=== PATIENT | female | born 1950 | race Caucasian/White ===

== ENCOUNTER → 2016-09-15 | Outpatient (CLI) | payer OTHER ==
[~2016-09-15] MED LIST: ALBU1AER9 INH; CITA20TA4 PO; CMD75 PO; HYOS0.1271 PO; OXYC-57 PO
--- NOTE | 2016-09-15 14:35 | DIAGNOSTIC IMAGING REPORT ---
CHEST 2 VIEWS ROUTINE CLINICAL HISTORY: Shortness of breath. COMPARISON STUDY: Chest radiograph January 17, [address] January 17, 2014. FINDINGS: Lung volumes are normal. Lungs are clear. There is no pneumothorax or pleural effusion. Moderate cardiomegaly is unchanged. There is no evidence of pulmonary edema. IMPRESSION: 1. No acute findings. 2. Stable moderate cardiomegaly. Electronically signed by: Yefri Padilla M.D. 09/15/2016 2:34 PM Dictated Date/Time: 09/15/2016 2:33 PM
== END | disposition home or self-care (01) ==
LOC: C.RAD1850 14:01
PROVIDERS: ATTEND Internal Medicine Pulmonary Disease
DX: R06.02 Shortness of breath (principal); I51.7 Cardiomegaly

== ENCOUNTER → 2016-09-30 | Outpatient (CLI) | payer OTHER ==
[~2016-09-30] MED LIST changes: +PERFLUTREN LIPID MICROSPHERE (DEFINITY) IV ONE
--- NOTE | 2016-09-30 16:11 | EXERCISE STRESS ECHO ---
*NOTICE TO RECEIVING CONSTITUTION PARTY AGENCY This information is strictly Confidential and protected under [place] law. [place] law prohibits you from making any further disclosure of this information unless further disclosure is expressly permitted by the written consent of the person to whom it pertains or is authorized by law. A general authorization for the release of medical or other information is not sufficient for this purpose. Hospital accepts no responsibility if the information is made available to any other person, INCLUDING THE PATIENT. Interpretation Summary * Name: ELIDIA PRIETO Study Date: 09/30/2016 11:49 AM BP: 129/70 mmHg * Patient Location: [facility] HR: 93 * : 1950 (M/d/yyyy) Gender: Female Height: 62 in * Age: 66 yrs Ethnicity: [place] Weight: 207 lb * Ordering Physician: Sandra Jones * Referring Physician: Sandra Jones PA-C * Performed By: Alan Calderon RCS * * Reason For Study: SOB, Family Hx of Heart Dz * BSA: 1.9 m2 * -- Conclusions -- * Stress Echo: * 1. No definite ischemic changes on stress echo imaging at 85% MPHR. * 2. Negative exercise ECG for ischemia at 85% MPHR. * 3. No chest pain. * 4. Dyspnea reported. * 5. Appropriate blood pressure response to exercise. * 6. Technically difficult study with some enhancement with IV Definity. * 7. Poor exercise tolerance. * Echo: * 1. Normal left ventricular size with low-normal systolic function. Estimated EF 50-55%. Wall motion analysis is affected by image quality. Possible hypokinesis of septal base. No significant left ventricular hypertrophy. Type 1 diastolic dysfunction. * 2. No significant valvular abnormalities visualized. * 3. Technically difficult study, enhanced somewhat with IV Definity. Procedure Details * ECHOEX, CPT #[id number] * ECHO COLOR FLOW, CPT #[id number] * ECHO DOPPLER, CPT #[id number] * A contrast injection of Definity was performed to improve assessment of LV function. * Contrast was injected into an intravenous site in the left arm. * One vial of Definity ultrasound contrast was diluted in normal saline to a total volume of 10 ml. A total of '4' ml of solution was administered during imaging. * Lot # [id number] of Definity utilized for procedure. * Expiration date 1DEC. * The attending nurse who injected the contrast agent was Bunny Gerardo RN. Left Ventricle * Normal left ventricular size with low-normal systolic function. Estimated EF 50-55%. Wall motion analysis is affected by image quality. Possible hypokinesis of septal base. No significant left ventricular hypertrophy. Type 1 diastolic dysfunction. * The left ventricular ejection fraction increases normally with stress. The left ventricular end-systolic cavity size reduces post-stress (normal response). The left ventricular wall motion with stress is normal. * There appears to be appropriate augmentation of all visualized wall segments. Right Ventricle * The right ventricle is not well visualized. * The right ventricle is grossly normal size. * The right ventricular systolic function is normal as assessed by tricuspid annular plane systolic excursion (TAPSE) (normal >1.5 cm). * The right ventricular systolic function is normal. Atria * The left atrial size is normal. * Right atrial size is normal. Mitral Valve * The mitral valve is grossly normal. * There is no mitral valve stenosis. * There is trace mitral regurgitation. Tricuspid Valve * The tricuspid valve is not well visualized. * There is no tricuspid stenosis. * Significant tricuspid regurgitation is absent. Aortic Valve * The aortic valve is normal in structure and function. * The aortic valve is trileaflet. * No hemodynamically significant valvular aortic stenosis. * There is no significant aortic regurgitation. Pulmonic Valve * The pulmonary valve is inadequately visualized, but the Doppler data is adequate for interpretation. * Mild pulmonic valvular regurgitation. Great Vessels * Borderline aortic root dilatation. * Ascending aorta of normal dimension Pericardium * There is no pericardial effusion. Stress Parameters * NSR at [address] abnormality in II, III, aVF. * Slow upsloping ST depression (progression of baseline abnormalities). * No arrhythmia were noted with stress. * The stress portion of this study was personally supervised by the undersigned interpreting physician. * Rest heart rate was '93' BPM. * Rest blood pressure was '129/70' * Maximum heart rate achieved was 133 bpm. * Maximum heart rate was 85 % of maximum age-predicted heart rate. * Maximum blood pressure was '153/66' * Total exercise time was '4:16' * Maximum exercise MET level achieved was '6.1' METS * Maximum treadmill speed was '2.5' miles per hour. * Maximum treadmill elevation was '12'% grade. * Exercise was terminated due to 'fatigue after achieving target heart rate' * Normal blood pressure response to exercise. Left Ventricular Diastolic Function * Grade I diastolic dysfunction, (abnormal relaxation pattern). MMode 2D Measurements and Calculations IVSd 1.0 cm IVSs 1.3 cm LVIDd 4.6 cm LVIDs 3.4 cm LVPWd 1.0 cm LVPWs 1.4 cm IVS/LVPW 0.99 FS 27.7 % EDV(Teich) 99.3 ml ESV(Teich) 45.9 ml EF(Teich) 53.8 % EDV(cubed) 99.8 ml ESV(cubed) 37.7 ml EF(cubed) 62.2 % % IVS thick 25.5 % % LVPW thick 35.1 % LV mass(C)d 166.2 grams LV mass(C)dI 85.7 grams/m\S\2 LV mass(C)s 150.9 grams LV mass(C)sI 77.8 grams/m\S\2 SV(Teich) 53.4 ml SI(Teich) 27.5 ml/m\S\2 SV(cubed) 62.1 ml SI(cubed) 32.0 ml/m\S\2 Ao root diam 4.0 cm Ao root area 12.8 cm\S\2 ACS 2.2 cm LA dimension 3.5 cm asc Aorta Diam 3.3 cm LA/Ao 0.86 LVLd ap2 8.1 cm LVLs ap2 6.7 cm Doppler Measurements and Calculations MV E max mercedes 56.2 cm/sec MV A max mercedes 59.0 cm/sec MV E/A 0.95 MV P1/2t max mercedes 53.7 cm/sec MV P1/2t 64.7 msec MVA(P1/2t) 3.4 cm\S\2 MV dec slope 243.2 cm/sec\S\2 MV dec time 0.24 sec Ao V2 max 72.2 cm/sec Ao max PG 2.1 mmHg Ao max PG (full) 0.90 mmHg LV V1 max PG 1.2 mmHg LV V1 max 54.5 cm/sec PA V2 max 76.2 cm/sec PA max PG 2.3 mmHg PI max mercedes 173.3 cm/sec PI max PG 12.0 mmHg PI dec slope 157.2 cm/sec\S\2 PI P1/2t 322.7 msec
== END | disposition home or self-care (01) ==
LOC: C.CPL 11:23
PROVIDERS: ATTEND Internal Medicine Pulmonary Disease
DX: J45.909 Unspecified asthma, uncomplicated (principal); R06.02 Shortness of breath

== ENCOUNTER → 2017-05-10 | Outpatient (CLI) | payer OTHER ==
[~2017-05-10] MED LIST changes: -PERFLUTREN LIPID MICROSPHERE (DEFINITY) IV ONE
--- NOTE | 2017-05-10 16:11 | MAMMOGRAPHY REPORT ---
BILATERAL DIGITAL SCREENING MAMMOGRAM WITH CAD: 05/10/2017 CLINICAL HISTORY: Routine screening. Patient has no complaints. TECHNIQUE: Current study was also evaluated with a Computer Aided Detection (CAD) system. Bilateral CC and MLO views were obtained. COMPARISON: Comparison is made to exams dated: 05/03/2016 mammogram, 04/20/2015 mammogram, 03/06/2014 ma mmogram, 02/20/2013 mammogram, 02/08/2012 mammogram, and 01/11/2011 mammogram - [facility] ter. BREAST COMPOSITION: There are scattered areas of fibroglandular density in both breasts. FINDINGS: No suspicious masses, calcifications, or areas of architectural distortion are noted in ei ther breast. There has been no significant interval change compared to prior exams. Scattered bilater al benign-appearing calcifications are not significantly changed. IMPRESSION: ACR BI-RADS CATEGORY 2: BENIGN There is no mammographic evidence of malignancy. A 1 year screening mammogram is recommended. The pa tient will receive written notification of the results. Approximately 10% of breast cancers are not detected with mammography. A negative mammographic report should not delay biopsy if a clinically suggestive mass is present. Mery Birmingham M.D. ah/:05/10/2017 13:45:25 Installer Soft Top: Teena MEDELR, M, [facility] letter sent: Normal 1/2 BI-RADS Code: ACR BI-RADS Category 2: Benign
== END | disposition home or self-care (01) ==
LOC: C.MAMM 12:33
PROVIDERS: ATTEND Family Medicine
DX: Z12.31 Encounter for screening mammogram for malignant neoplasm of breast (principal)

== ENCOUNTER → 2018-02-23 | Outpatient (CLI) | payer OTHER ==
[~2018-02-23] MED LIST changes: -ALBU1AER9 INH; +BUPRTAB51 PO; -CITA20TA4 PO; -CMD75 PO; +CYAN100048 PO; +DIAZ2TAB PO; +FOLI1TAB8 PO; -HYOS0.1271 PO; +MECL1TAB42 PO; +MULT-1018 PO; -OXYC-57 PO; +RXC5 PO; +SPIR50TA2 PO; +WARF5TAB7 PO; +WARF7.5T4 PO
[2018-02-23 11:53] LABS: INR 2.6 (0.9-1.1)
--- NOTE | 2018-02-28 11:53 | CODING QUERY NO DIAGNOSIS ---
Valid Physician Order Needed A valid physician order must be submitted in order to properly bill for the service(s) provided, including date of service(s), valid diagnosis, and physician signature. If these tests are done on a recurring basis the original physician order must be submitted in order to code and bill for the service(s) provided. Please fax us the original, signed physician order so that we may expedite billing to [phone] DOS 02/23/18 * PROTHROMBIN TIME Thank you Bj [facility] Information Management
== END | disposition home or self-care (01) ==
LOC: C.LABSPEC 11:18
PROVIDERS: ATTEND Family Medicine
DX: Z01.89 Encounter for other specified special examinations (principal)

== ENCOUNTER 2019-07-15 14:44 | Observation (INO) ==
[2019-07-15] MEDS ORDERED: SODIUM CHLORIDE 0.9% 1000ML 1,000 ML IV ONE ×2 (15:04→17:49)
[2019-07-15 15:36] LABS: Basophils # (auto) 0.02 K/uL (0-0.2); Basophils % (auto) 0.3 %; Eosinophils # (auto) 0.11 K/uL (0-0.5); Eosinophils % (auto) 1.9 %; Hematocrit (blood only) 42.2 % (37-47); Hemoglobin 14.3 g/dL (12.0-16.0); Lymphocytes # (auto) 1.71 K/uL (1.2-3.4); Lymphocytes % (auto) 29.3 %; Mean Corpuscular Hemoglobin 32.5 pg (25-34); Mean Corpuscular Hgb Conc 33.9 g/dL (32-36); Mean Corpuscular Volume 95.9 fL (80-100); Mean Platelet Volume 11.9 fL (7.4-10.4); Monocytes # (auto) 0.31 K/uL (0.11-0.59); Monocytes % (auto) 5.3 %; Neutrophils # (auto) 3.69 K/uL (1.4-6.5); Neutrophils % (auto) 63.2 %; Platelet Count 244 K/uL (130-400); RDW Coefficient of Variation 13.7 % (11.5-14.5); RDW Standard Deviation 48.2 fL (36.4-46.3); White Blood Count 5.84 K/uL (4.8-10.8)
[2019-07-15 15:42] LABS: Prothrombin Time 28.7 Seconds (9.0-12.0)
[2019-07-15 15:57] LABS: Alanine Aminotransferase 21 U/L (12-78); Albumin Level 4.3 gm/dl (3.4-5.0); Aspartate Aminotransferase 23 U/L (15-37); BUN Creatinine Ratio 11.3 (10-20); Blood Urea Nitrogen 10 mg/dl (7-18); Calcium 9.6 mg/dl (8.5-10.1); Carbon Dioxide 23 mmol/L (21-32); Chloride 105 mmol/L (98-107); Est GFR (African American) 76.2; Est GFR (Non-African American) 65.7; Glucose 150 mg/dl (70-99); Lipase 123 U/L (73-393); Magnesium 1.9 mg/dl (1.8-2.4); Potassium 3.1 mmol/L (3.5-5.1); Sodium 139 mmol/L (136-145)
--- NOTE | 2019-07-15 16:02 | XRay Report ---
XR chest 1V portable HISTORY: 68 years-old Female Chest Pain acute atypical chest pain COMPARISON: Chest radiograph 07/02/2018 TECHNIQUE: Portable AP view of the chest FINDINGS: Cardiac silhouette is enlarged, unchanged. No pneumothorax, pleural effusion, focal airspace consolid ation or overt pulmonary edema. Degenerative changes of the shoulders and spine. IMPRESSION: Cardiomegaly without acute process. The above report was generated using voice recognition software. It may contain grammatical, syntax o r spelling errors. Electronically signed by: Manish Gonzalez M.D. 07/15/2019 4:00 PM
[2019-07-15 16:08] LABS: Albumin Globulin Ratio 1.1 (0.9-2); Alkaline Phosphatase 85 U/L (45-117); Bilirubin,Total 0.4 mg/dl (0.2-1); Phosphorus 2.3 mg/dl (2.5-4.9); Total Protein 8.3 gm/dl (6.4-8.2); Troponin I < 0.015 ng/ml (0-0.045)
[2019-07-15] MEDS ORDERED: POTASSIUM CHLORIDE / WTR 10 MEQ/100 ML PLCT IV STA (16:48)
[2019-07-15] MEDS ORDERED: POTASSIUM CHLORIDE 20 MEQ TABCR PO STA (17:00)
[2019-07-15] MEDS ORDERED: MAGNESIUM SULFATE / D5W 1 GM/100 ML BAG IV ONE (17:00)
[2019-07-15 18:30] LABS: Appearance Urine Clear (Clear); Bacteria Urine Automated Negative (Negative); Bilirubin Urine Negative (Negative); Blood Urine Negative (Negative); Color Urine Yellow; Epithelial Cell Urine Auto 20-30 /lpf (0-5); Glucose Urine UA Negative (Negative); Ketones Urine Negative (Negative); Leukocyte Esterase Urine Trace (Negative); Nitrite Urine Negative (Negative); Protein Urine Negative (Negative); RBC Urine Automated 0-4 /hpf (0-4); Specific Gravity Urine 1.012 (1.000-1.030); Urobilinogen Urine Negative (Negative)
[2019-07-15] MEDS ORDERED: MECLIZINE HCL 25 MG TAB PO PRN (20:27)
--- NOTE | 2019-07-15 21:12 | History & Physical Report ---
Date of Service July 15, 2019 Assessment & Plan (1) Palpitations: Likely underlying paroxysmal tachyarrhythmia --Patient reports intermittent episodes of palpitations associated with dizziness, syncope, heart rate 200s per pulse oximetry at home Resolves spontaneously after 5 to 10 minutes -- Admit to telemetry -- Echocardiogram ordered -- Replete and monitor potassium Continue IV fluids --Customs Consultant consulted Hypokalemia --Patient with IV and p.o. potassium,monitor levels Hypophosphatemia --Replaced with phosphorus History of pulmonary embolism, 2018 History of MTHFR mutation --Chronic Coumadin, INR 3.0 Continue Coumadin History of rectal cancer, status post colectomy --No GI issues, continue outpatient follow-up History of depression --Stable, on bupropion, hold for now in light of possible tachyarrhythmia DVT prophylaxis On Coumadin INR 3.0 Disposition Lives at home Anticipate discharge to home medically stable Follow-up with primary care physician Plan of care discussed with patient in detail and at length She is agreeable, and understanding with the plan of care History of Present Illness 68-year-old female with history of PE, MTHFR mutation, on chronic Coumadin, History of of rectal cancer, status post partial colectomy, other problems noted below presenting with intermittent palpitations and elevated heart rate since last week. Patient reports that since last week she has been having intermittent episodes of palpitations associated with lightheadedness and sensation of feeling that she is going to pass out. During these episodes patient patient would check her pulse rate with a pulse oximeter at home, reveals heart rate in the 200s. Episodes would occur about 1-2 times a day, lasts for about 5 to 10 minutes, and would spontaneously resolve with rest. This afternoon while eating at a restaurant, the patient had recurrence of the palpitations. Family brought the patient to the ER for evaluation. Upon admission, patient's heart rate was noted to be in the 200s, but quickly improved in the 120s, sinus rhythm. There is no EKG or monitoring tech strips while the heart rate was in the 200s. Patient was given IV NSS, potassium, magnesium. Heart rate further improved in the 80s. On exam patient was seen sitting up in bed, comfortable, not in distress. At that time heart rate was also in the 80s, sinus rhythm. She denies having active shortness of breath, chest pain, palpitations, dizziness, nausea. No other symptoms Primary Care Provider: Elmo Hays MD Allergies Allergy/AdvReac Type Severity Reaction Status Date / Time nickel Allergy Intermediate RASH/ITCHIN Verified 06/05/19 11:07 G Cephalosporins Allergy Mild rash Verified 06/05/19 11:07 triamterene Allergy Unknown tachycardia Verified 06/05/19 11:07 Home Medications Home Medications Medication Instructions Recorded Confirmed Type bupropion HCl 300 mg PO QAM 06/09/18 07/15/19 History cyanocobalamin (vitamin B-12) 1,000 mcg PO QAM 06/09/18 07/15/19 History diazepam 2 mg PO QID PRN 06/09/18 07/15/19 History folic acid 1 mg PO QAM 06/09/18 07/15/19 History meclizine 25 mg PO TID PRN 06/09/18 07/15/19 History spironolactone 50 mg PO QAM 06/09/18 07/15/19 History warfarin 5 mg PO QPM 06/09/18 07/15/19 History PNV cmb#95-ferrous fumarate-FA 1 tab PO QPM 04/12/19 07/15/19 History [] albuterol sulfate 2 puff INHALATION QID PRN 04/12/19 07/15/19 History Past Med/Surg History Medical History Acute blood loss anemia HX of after gallbladder surgery 2017 Acute pulmonary embolism HX 2014 & 2013 -DX'D WITH MTHFR then started on warfarin Anxiety Cancer COLON Depression History of MTHFR mutation Obesity On anticoagulant therapy WARFARIN DAILY Vertigo Surgical History H/O ileostomy AND REVERSED History of anesthesia reaction SLOW TO WAKE UP WITH GB SURG 06/2018 [facility] History of bowel resection History of cholecystectomy 06/2018 [facility]-2 BLOOD TRANSFUSIONS History of colonoscopy History of esophagogastroduodenoscopy (EGD) History of right cataract extraction History of tonsillectomy History of total knee replacement RIGHT TKA= 02/09/18= SAB X 1 ATTEMPT + PNB AT [facility] Nausea and vomiting after administration of anesthetic agent + VERITIGO (EXACERBATED)/DIZZINESS S/P COLON RESECTION S/P IVC filter PLACED 06/2018 AND WAS REMOVED 09/2018 S/P STANISLAW-BSO Family History Mother Cardiomyopathy Father No pertinent family history Grandmother , age 62 Aneurysm Brother Brain tumor Aunt Family history of diabetes mellitus Aunt Family history of diabetes mellitus Aunt Family history of diabetes mellitus Uncle Family history of diabetes mellitus Uncle Family history of diabetes mellitus Social History Preferred Language: Swedish Communication Ability: Effective Visual Impairment: No Limitations Integration Developer Required: No Beliefs That Will Affect Care: None Current Living Situation: Alone Feels Safe at Home: Yes Smoking Status: Never smoker Second Hand Exposure: No ; Hx Alcohol Use: No Hx Substance Use: No Review of Systems Review of Systems: All systems reviewed & are unremarkable except as noted in HPI & below Physical Exam Physical Exam: General- oriented x 3, not in distress, speaks in sentences with no effort or accessory muscle use Head- atraumatic Eyes- PERRL, EOMI, anicteric ENT- oropharynx clear Neck- supple, no JVD, no adenopathy, no thyromegaly; carotids +2/2, no bruits appreciated Lungs- clear to auscultation bilaterally, no rales/wheezes Heart- normal rate, regular rhythm; no murmur, no gallop, no rub appreciated Abdomen- normal bowel sounds, nondistended, soft, nontender, no masses or hepatosplenomegaly Extremities- no pretibial edema, no calf tenderness; peripheral pulses intact Neuro- alert, oriented x 3; CN 2-12 grossly intact; motor 5/5 bilaterally;sensation 100% on all extremities; no other gross focal neurologic deficits Skin- warm & dry Results & Data Vital Signs (Past 12 Hours) Vital Signs Pulse Pulse Resp BP BP Pulse Ox 07/15/19 19:58 78 21 122/83 99 07/15/19 19:30 78 21 122/83 99 07/15/19 19:00 82 20 140/74 96 07/15/19 18:30 83 14 140/88 97 07/15/19 18:00 87 17 142/82 H 97 07/15/19 17:31 98 H 22 133/89 97 07/15/19 17:00 112 H 19 113/81 96 07/15/19 16:30 84 19 142/96 H 98 07/15/19 16:00 87 18 123/85 96 07/15/19 15:30 94 H 31 H 152/94 H 98 07/15/19 15:24 96 07/15/19 15:15 122 H 26 H 144/71 H 98 07/15/19 15:06 116 H 20 144/71 H 97 07/15/19 15:00 120 H 26 H 98 07/15/19 14:56 202 H 20 145/98 H 98 Laboratory Results Laboratory Results - last 24 hr 07/15/19 07/15/19 07/15/19 15:16 15:16 15:16 WBC 5.84 RBC 4.40 Hgb 14.3 Hct 42.2 MCV 95.9 MCH 32.5 MCHC 33.9 RDW Std Deviation 48.2 H RDW Coeff of Yaz 13.7 Plt Count 244 MPV 11.9 H Immature Gran % (Auto) 0.0 Neut % (Auto) 63.2 Lymph % (Auto) 29.3 Davidson % (Auto) 5.3 Eos % (Auto) 1.9 Baso % (Auto) 0.3 Immature Gran # (Auto) 0.00 Neut # (Auto) 3.69 Lymph # (Auto) 1.71 Davidson # (Auto) 0.31 Eos # (Auto) 0.11 Baso # (Auto) 0.02 PT 28.7 H INR 3.0 H Sodium 139 Potassium 3.1 L Chloride 105 Carbon Dioxide 23 Anion Gap 11.0 BUN 10 Creatinine 0.91 Est Cr Clr Drug Dosing Not Reportable Est GFR ( Amer) 76.2 Est GFR (Non-Af Amer) 65.7 BUN/Creatinine Ratio 11.3 Glucose 150 H Calcium 9.6 Phosphorus 2.3 L Magnesium 1.9 Total Bilirubin 0.4 AST 23 ALT 21 Alkaline Phosphatase 85 Troponin I < 0.015 Total Protein 8.3 H Albumin 4.3 Globulin 4.0 Albumin/Globulin Ratio 1.1 Lipase 123 TSH 1.890 Urine Color Urine Appearance Urine pH Ur Specific Elmo Urine Protein Urine Glucose (UA) Urine Ketones Urine Blood Urine Nitrite Urine Bilirubin Urine Urobilinogen Ur Leukocyte Esterase Urine WBC (Auto) Urine RBC (Auto) U Hyaline Cast (Auto) U Epithel Cells (Auto) Urine Bacteria (Auto) 07/15/19 18:00 WBC RBC Hgb Hct MCV MCH MCHC RDW Std Deviation RDW Coeff of Yaz Plt Count MPV Immature Gran % (Auto) Neut % (Auto) Lymph % (Auto) Davidson % (Auto) Eos % (Auto) Baso % (Auto) Immature Gran # (Auto) Neut # (Auto) Lymph # (Auto) Davidson # (Auto) Eos # (Auto) Baso # (Auto) PT INR Sodium Potassium Chloride Carbon Dioxide Anion Gap BUN Creatinine Est Cr Clr Drug Dosing Est GFR ( Amer) Est GFR (Non-Af Amer) BUN/Creatinine Ratio Glucose Calcium Phosphorus Magnesium Total Bilirubin AST ALT Alkaline Phosphatase Troponin I Total Protein Albumin Globulin Albumin/Globulin Ratio Lipase TSH Urine Color Yellow Urine Appearance Clear Urine pH 6.0 Ur Specific Elmo 1.012 Urine Protein Negative Urine Glucose (UA) Negative Urine Ketones Negative Urine Blood Negative Urine Nitrite Negative Urine Bilirubin Negative Urine Urobilinogen Negative Ur Leukocyte Esterase Trace H Urine WBC (Auto) 1-5 Urine RBC (Auto) 0-4 U Hyaline Cast (Auto) 1-5 U Epithel Cells (Auto) 20-30 H Urine Bacteria (Auto) Negative Code Status & VTE Plan Code Status FULL CODE PER PATIENT VTE Prophylaxis Plan VTE Prophylaxis will be ordered: Yes
[2019-07-15] MEDS: NSS + 20MEQ KCL 20 MEQ/1,000 ML BAG IV SCH (21:21)
[2019-07-15] MEDS: POT PHOSPHATE MONOBASIC W/ SOD TAB PO SCH (21:21)
--- NOTE | 2019-07-16 02:01 | Emergency Department Note ---
Entered by Ariela Pineda acting as a scribe for History of Present Illness General Chief complaint: Cardiac Assessment Stated complaint: HEART RATE KEEPS RISING, LIGHT HEADED Time Seen by Provider: 07/15/19 15:03 History of Present Illness Onset (ago): week(s) 1 Location: chest Pain Consistency: + intermittent Quality: + other (pressure) Associated symptoms: + denies other symptoms (congestion), + diaphoresis and + other (palpitations, tachycardia, hot, flushed, lightheaded); no cough and no fever/chills The patient is a 68 year old female who presents to the Emergency Room with complaints of intermittent chest pain starting a week ago. The patient states that intermittently for the past week she has been having these intermittent episodes of chest pressure with the feeling of her heart beating really hard. She reports that over the last few days, the episodes have been getting closer and closer together. She states that with each episode she checks her heart rate and it has been around 218. She reports that the other night she had an episode that lasted for an hour and it slowly came down to 182. She notes that the entire time she was hot, flushed, and diaphoretic. The patient states that today she had an episode while she was with her kids. She reports that she started to feel like she was going to pass out she was so lightheaded. She states that they made her come here. The patient notes that she only drinks Pepsi and is on Coumadin. The patient denies a cardiac history, fever, chills, cough, and congestion. Home Medications Home Medications Medication Instructions Recorded Confirmed Type bupropion HCl 300 mg PO QAM 06/09/18 07/15/19 History cyanocobalamin (vitamin B-12) 1,000 mcg PO QAM 06/09/18 07/15/19 History diazepam 2 mg PO QID PRN 06/09/18 07/15/19 History folic acid 1 mg PO QAM 06/09/18 07/15/19 History meclizine 25 mg PO TID PRN 06/09/18 07/15/19 History spironolactone 50 mg PO QAM 06/09/18 07/15/19 History warfarin 5 mg PO QPM 06/09/18 07/15/19 History PNV cmb#95-ferrous fumarate-FA 1 tab PO QPM 04/12/19 07/15/19 History [] albuterol sulfate 2 puff INHALATION QID PRN 04/12/19 07/15/19 History metoprolol tartrate 25 mg PO BID 30 Days #60 tab 07/17/19 Rx sod phos di, mono-K phos mono 1 tab PO QID 10 Days #40 tab 07/17/19 Rx [Phospha 250 Neutral] Allergies Allergy/AdvReac Type Severity Reaction Status Date / Time nickel Allergy Intermediate RASH/ITCHIN Verified 06/05/19 11:07 G Cephalosporins Allergy Mild rash Verified 06/05/19 11:07 triamterene Allergy Unknown tachycardia Verified 06/05/19 11:07 Past Med/Surg History Medical History Acute blood loss anemia HX of after gallbladder surgery 2017 Acute pulmonary embolism HX 2014 & 2013 -DX'D WITH MTHFR then started on warfarin Anxiety Cancer COLON Depression History of MTHFR mutation Obesity On anticoagulant therapy WARFARIN DAILY Vertigo Surgical History H/O ileostomy AND REVERSED History of anesthesia reaction SLOW TO WAKE UP WITH GB SURG 06/2018 [facility] History of bowel resection History of cholecystectomy 06/2018 [facility]-2 BLOOD TRANSFUSIONS History of colonoscopy History of esophagogastroduodenoscopy (EGD) History of right cataract extraction History of tonsillectomy History of total knee replacement RIGHT TKA= 02/09/18= SAB X 1 ATTEMPT + PNB AT [facility] Nausea and vomiting after administration of anesthetic agent + VERITIGO (EXACERBATED)/DIZZINESS S/P COLON RESECTION S/P IVC filter PLACED 06/2018 AND WAS REMOVED 09/2018 S/P STANISLAW-BSO Family History Mother Cardiomyopathy Father No pertinent family history Grandmother , age 62 Aneurysm Brother Brain tumor Aunt Family history of diabetes mellitus Aunt Family history of diabetes mellitus Aunt Family history of diabetes mellitus Uncle Family history of diabetes mellitus Uncle Family history of diabetes mellitus Social History Preferred Language: Romanian Communication Ability: Effective Visual Impairment: No 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 and A total of 10 systems reviewed and were otherwise negative Physical Exam Vital Signs Vital Signs - 24 hr 07/15/19 14:56 07/15/19 15:00 07/15/19 15:06 Sepsis Recent Fever Within 48 Hours No Sepsis Action Taken by Nursing No Action Required Pulse Rate 202 H 120 H 116 H Pulse Rate [Right Finger] Pulse Rate from SpO2 Sensor 104 H Respiratory Rate 20 26 H 20 Respiratory Effort / Characteristics Non-Labored Respiratory Depth Normal Blood Pressure 145/98 H 144/71 H Blood Pressure [Right Arm] Blood Pressure Mean 113 95 Blood Pressure Mean [Right Arm] Pulse Oximetry 98 98 97 Oxygen Delivery Method Room Air Room Air 07/15/19 15:15 07/15/19 15:20 07/15/19 15:24 Sepsis Recent Fever Within 48 Hours Sepsis Action Taken by Nursing Pulse Rate Pulse Rate [Right Finger] 122 H Pulse Rate from SpO2 Sensor Respiratory Rate 26 H Respiratory Effort / Characteristics Non-Labored Non-Labored Respiratory Depth Normal Normal Blood Pressure Blood Pressure [Right Arm] 144/71 H Blood Pressure Mean Blood Pressure Mean [Right Arm] 95 Pulse Oximetry 98 96 Oxygen Delivery Method Room Air Room Air Room Air 07/15/19 15:30 07/15/19 16:00 07/15/19 16:30 Sepsis Recent Fever Within 48 Hours Sepsis Action Taken by Nursing Pulse Rate 94 H 87 84 Pulse Rate [Right Finger] Pulse Rate from SpO2 Sensor 94 H 78 85 Respiratory Rate 31 H 18 19 Respiratory Effort / Characteristics Respiratory Depth Blood Pressure 152/94 H 123/85 142/96 H Blood Pressure [Right Arm] Blood Pressure Mean 113 97 111 Blood Pressure Mean [Right Arm] Pulse Oximetry 98 96 98 Oxygen Delivery Method Room Air Room Air Room Air 07/15/19 17:00 07/15/19 17:31 07/15/19 18:00 Sepsis Recent Fever Within 48 Hours Sepsis Action Taken by Nursing Pulse Rate 112 H 98 H 87 Pulse Rate [Right Finger] Pulse Rate from SpO2 Sensor 96 H 95 H Respiratory Rate 19 22 17 Respiratory Effort / Characteristics Respiratory Depth Blood Pressure 113/81 133/89 142/82 H Blood Pressure [Right Arm] Blood Pressure Mean 91 103 102 Blood Pressure Mean [Right Arm] Pulse Oximetry 96 97 97 Oxygen Delivery Method Room Air Room Air Room Air 07/15/19 18:30 Sepsis Recent Fever Within 48 Hours Sepsis Action Taken by Nursing Pulse Rate 83 Pulse Rate [Right Finger] Pulse Rate from SpO2 Sensor 83 Respiratory Rate 14 Respiratory Effort / Characteristics Respiratory Depth Blood Pressure 140/88 Blood Pressure [Right Arm] Blood Pressure Mean 105 Blood Pressure Mean [Right Arm] Pulse Oximetry 97 Oxygen Delivery Method Room Air GENERAL: Awake, alert, fatigued-appearing, in no distress HENT: Normocephalic, atraumatic. Oropharynx with dry mucous membranes and otherwise unremarkable. . EYES: Normal conjunctiva. Sclera non-icteric. NECK: Supple. No nuchal rigidity. FROM. No JVD. RESPIRATORY: Clear to auscultation bilaterally. CARDIAC: Tachycardic rate, irregular rhythm. Extremities warm and well perfused. Pulses equal. ABDOMEN: Soft, non-distended. No tenderness to palpation. No rebound or guarding. No masses. RECTAL: Deferred. MUSCULOSKELETAL: Chest examination reveals no tenderness. The back is symmetrical on inspection without obvious abnormality. There is no CVA tenderness to palpation. No joint edema. LOWER EXTREMITIES: Calves are equal size bilaterally and non-tender. No edema. No discoloration. NEURO: Normal sensorium. No sensory or motor deficits noted. SKIN: No rash or jaundice noted. Course 1507: The patient was evaluated in room B8. A complete history and physical exam was performed. 1733: I reevaluated the patient and updated her on her test results thus far. 175: I discussed the patient's case with KIMO Delarosa [facility] Hospitalist. She will evaluate the patient for further management. 1805: I reevaluated the patient and updated her on her test results. I discussed the treatment plan with her. She verbally agrees and understands. Administered Medications Discontinued Medications Acetaminophen (Tylenol) 650 mg PO Q4H PRN PRN Reason: Pain or Fever Stop: 08/14/19 20:26 Last Admin: 07/16/19 17:02 Dose: 650 mg Documented by: [id number] Admin: 07/16/19 08:38 Dose: 650 mg Documented by: [id number] Bupropion HCl (Wellbutrin-Xl) 300 mg PO QAM VALENTÍN Stop: 08/16/19 08:59 Last Admin: 07/17/19 09:05 Dose: 300 mg Documented by: [id number] Folic Acid (Folvite) 1 mg PO QAM VALENTÍN Stop: 08/15/19 08:59 Last Admin: 07/17/19 08:44 Dose: 1 mg Documented by: [id number] Admin: 07/16/19 08:39 Dose: 1 mg Documented by: [id number] Sodium Chloride (Nss 1000ml) 1,000 mls @ 999 mls/hr IV .Q1H1M ONE Stop: 07/15/19 16:04 Last Infusion: 07/15/19 17:14 Dose: 0 mls/hr Documented by: [id number] Admin: 07/15/19 15:21 Dose: 999 mls/hr Documented by: [id number] Potassium Chloride (K Edgar / Wtr) 10 meq in 100 mls @ 100 mls/hr IV NOW STA Stop: 07/15/19 17:47 Last Infusion: 07/15/19 18:58 Dose: 0 mls/hr Documented by: [id number] Admin: 07/15/19 17:53 Dose: 100 mls/hr Documented by: [id number] Magnesium Sulfate/Dextrose (Magnesium Sulfate / D5w) 1 gm in 100 mls @ 100 mls/hr IV ONE ONE Stop: 07/15/19 17:59 Last Infusion: 07/15/19 18:58 Dose: 0 mls/hr Documented by: [id number] Admin: 07/15/19 17:52 Dose: 100 mls/hr Documented by: [id number] Sodium Chloride (Nss 1000ml) 1,000 mls @ 999 mls/hr IV .Q1H1M ONE Stop: 07/15/19 18:49 Last Infusion: 07/15/19 19:29 Dose: 0 mls/hr Documented by: [id number] Admin: 07/15/19 17:52 Dose: 999 mls/hr Documented by: [id number] Potassium Chloride/Sodium Chloride (Normal Saline W/20 Meq Kcl) 20 meq in 1,000 mls @ 100 mls/hr IV .Q10H VALENTÍN Stop: 08/14/19 20:59 Last Infusion: 07/17/19 08:42 Dose: 0 mls/hr Documented by: [id number] Admin: 07/17/19 02:45 Dose: 100 mls/hr Documented by: [id number] Infusion: 07/17/19 02:45 Dose: 100 mls/hr Documented by: [id number] Admin: 07/16/19 16:56 Dose: 100 mls/hr Documented by: [id number] Infusion: 07/16/19 16:56 Dose: 100 mls/hr Documented by: [id number] Admin: 07/16/19 08:39 Dose: 100 mls/hr Documented by: [id number] Infusion: 07/16/19 07:21 Dose: 100 mls/hr Documented by: [id number] Admin: 07/15/19 21:21 Dose: 100 mls/hr Documented by: [id number] Metoprolol Tartrate (Lopressor) Confirm Administered Dose 5 mg IV .STK-MED ONE Stop: 07/16/19 02:10 Last Increment: 07/16/19 05:03 Dose: 2.5 mg Documented by: [id number] Metoprolol Tartrate (Lopressor) 25 mg PO BID VALENTÍN Stop: 08/15/19 09:29 Last Admin: 07/17/19 08:44 Dose: 25 mg Documented by: [id number] Admin: 07/16/19 20:03 Dose: 25 mg Documented by: [id number] Admin: 07/16/19 09:46 Dose: 25 mg Documented by: [id number] Potassium Chloride (Klor-Con M20) 40 meq PO NOW STA Stop: 07/15/19 17:01 Last Admin: 07/15/19 17:53 Dose: 40 meq Documented by: [id number] Potassium Phosphate (Phospha 250 Neutral 155-852-130 Mg) 1 tab PO QID VALENTÍN Stop: 08/14/19 20:59 Last Admin: 07/17/19 08:44 Dose: 1 tab Documented by: [id number] Admin: 07/16/19 20:03 Dose: 1 tab Documented by: [id number] Admin: 07/16/19 16:56 Dose: 1 tab Documented by: [id number] Admin: 07/16/19 12:02 Dose: 1 tab Documented by: [id number] Admin: 07/16/19 08:39 Dose: 1 tab Documented by: [id number] Admin: 07/15/19 21:21 Dose: 1 tab Documented by: [id number] Warfarin Sodium (Coumadin) 5 mg PO DAILY@1600 VALENTÍN Stop: 08/15/19 15:59 Last Admin: 07/16/19 16:10 Dose: 5 mg Documented by: [id number] Impression & Plan Dehydration, Hypokalemia, Hypophosphatemia, Hypomagnesemia, Atrial tachycardia Discharge Plan Visit Data *Final* Discharge Date/Time: 07/15/19 19:58 Chief Complaint: Cardiac Assessment Stated Complaint: HEART RATE KEEPS RISING, LIGHT HEADED ED Provider: Faraz Cardenas Discharge Problem: Dehydration, Hypokalemia, Hypophosphatemia, Hypomagnesemia, Atrial tachycardia Patient Disposition: Admitted As Inpatient Discharge Instructions Interventions: ED Discharge Assessment Last Done: 07/15/19 19:58 Medical Decision Making Differential Diagnosis Differential diagnosis includes etiologies such as premature contractions, electrolyte abnormality, cardiac dysrhythmia, thyroid dysfunction, pulmonary embolism, infection, gastrointestinal, as well as others were entertained. Medical Records Attestation: I reviewed the patient's medical records. Home Medications Current Medication List: was personally reviewed by me Laboratory Data Attestation: I reviewed the patient's lab results. Result diagrams: 07/15/19 15:16 07/17/19 06:06 Lab Results 07/15/19 07/15/19 07/15/19 Range/Units 15:16 15:16 15:16 WBC 5.84 (4.8-10.8) K/uL RBC 4.40 (4.2-5.4) M/uL Hgb 14.3 (12.0-16.0) g/dL Hct 42.2 (37-47) % MCV 95.9 (80-100) fL MCH 32.5 (25-34) pg MCHC 33.9 (32-36) g/dL RDW Std Deviation 48.2 H (36.4-46.3) fL RDW Coeff of Yaz 13.7 (11.5-14.5) % Plt Count 244 (130-400) K/uL MPV 11.9 H (7.4-10.4) fL Immature Gran % (Auto) 0.0 % Neut % (Auto) 63.2 % Lymph % (Auto) 29.3 % [place] % (Auto) 5.3 % Eos % (Auto) 1.9 % Baso % (Auto) 0.3 % Immature Gran # (Auto) 0.00 (0.00-0.02) K/uL Neut # (Auto) 3.69 (1.4-6.5) K/uL Lymph # (Auto) 1.71 (1.2-3.4) K/uL [place] # (Auto) 0.31 (0.11-0.59) K/uL Eos # (Auto) 0.11 (0-0.5) K/uL Baso # (Auto) 0.02 (0-0.2) K/uL PT 28.7 H (9.0-12.0) Seconds INR 3.0 H (0.9-1.1) Sodium 139 (136-145) mmol/L Potassium 3.1 L (3.5-5.1) mmol/L Chloride 105 (98-107) mmol/L Carbon Dioxide 23 (21-32) mmol/L Anion Gap 11.0 (3-11) BUN 10 (7-18) mg/dl Creatinine 0.91 (0.6-1.2) mg/dl Est Cr Clr Drug Dosing Not Reportable Est GFR ( Amer) 76.2 Est GFR (Non-Af Amer) 65.7 BUN/Creatinine Ratio 11.3 (10-20) Glucose 150 H (70-99) mg/dl Calcium 9.6 (8.5-10.1) mg/dl Phosphorus 2.3 L (2.5-4.9) mg/dl Magnesium 1.9 (1.8-2.4) mg/dl Total Bilirubin 0.4 (0.2-1) mg/dl AST 23 (15-37) U/L ALT 21 (12-78) U/L Alkaline Phosphatase 85 (45-117) U/L Troponin I < 0.015 (0-0.045) ng/ml Total Protein 8.3 H (6.4-8.2) gm/dl Albumin 4.3 (3.4-5.0) gm/dl Globulin 4.0 (2.5-4.0) gm/dl Albumin/Globulin Ratio 1.1 (0.9-2) Lipase 123 (73-393) U/L TSH 1.890 (0.300-4.500) uIu/ml Urine Color Urine Appearance (Clear) Urine pH (4.5-7.5) Ur Specific [place] (1.000-1.030) Urine Protein (Negative) Urine Glucose (UA) (Negative) Urine Ketones (Negative) Urine Blood (Negative) Urine Nitrite (Negative) Urine Bilirubin (Negative) Urine Urobilinogen (Negative) Ur Leukocyte Esterase (Negative) Urine WBC (Auto) (0-5) /hpf Urine RBC (Auto) (0-4) /hpf U Hyaline Cast (Auto) (0-5) /lpf U Epithel Cells (Auto) (0-5) /lpf Urine Bacteria (Auto) (Negative) 07/15/19 Range/Units 18:00 WBC (4.8-10.8) K/uL RBC (4.2-5.4) M/uL Hgb (12.0-16.0) g/dL Hct (37-47) % MCV (80-100) fL MCH (25-34) pg MCHC (32-36) g/dL RDW Std Deviation (36.4-46.3) fL RDW Coeff of Yaz (11.5-14.5) % Plt Count (130-400) K/uL MPV (7.4-10.4) fL Immature Gran % (Auto) % Neut % (Auto) % Lymph % (Auto) % [place] % (Auto) % Eos % (Auto) % Baso % (Auto) % Immature Gran # (Auto) (0.00-0.02) K/uL Neut # (Auto) (1.4-6.5) K/uL Lymph # (Auto) (1.2-3.4) K/uL [place] # (Auto) (0.11-0.59) K/uL Eos # (Auto) (0-0.5) K/uL Baso # (Auto) (0-0.2) K/uL PT (9.0-12.0) Seconds INR (0.9-1.1) Sodium (136-145) mmol/L Potassium (3.5-5.1) mmol/L Chloride (98-107) mmol/L Carbon Dioxide (21-32) mmol/L Anion Gap (3-11) BUN (7-18) mg/dl Creatinine (0.6-1.2) mg/dl Est Cr Clr Drug Dosing Est GFR ( Amer) Est GFR (Non-Af Amer) BUN/Creatinine Ratio (10-20) Glucose (70-99) mg/dl Calcium (8.5-10.1) mg/dl Phosphorus (2.5-4.9) mg/dl Magnesium (1.8-2.4) mg/dl Total Bilirubin (0.2-1) mg/dl AST (15-37) U/L ALT (12-78) U/L Alkaline Phosphatase (45-117) U/L Troponin I (0-0.045) ng/ml Total Protein (6.4-8.2) gm/dl Albumin (3.4-5.0) gm/dl Globulin (2.5-4.0) gm/dl Albumin/Globulin Ratio (0.9-2) Lipase (73-393) U/L TSH (0.300-4.500) uIu/ml Urine Color Yellow Urine Appearance Clear (Clear) Urine pH 6.0 (4.5-7.5) Ur Specific [place] 1.012 (1.000-1.030) Urine Protein Negative (Negative) Urine Glucose (UA) Negative (Negative) Urine Ketones Negative (Negative) Urine Blood Negative (Negative) Urine Nitrite Negative (Negative) Urine Bilirubin Negative (Negative) Urine Urobilinogen Negative (Negative) Ur Leukocyte Esterase Trace H (Negative) Urine WBC (Auto) 1-5 (0-5) /hpf Urine RBC (Auto) 0-4 (0-4) /hpf U Hyaline Cast (Auto) 1-5 (0-5) /lpf U Epithel Cells (Auto) 20-30 H (0-5) /lpf Urine Bacteria (Auto) Negative (Negative) Imaging Data Radiologist's Impression: Radiology results as stated below per my review and the radiologist's interpretation: XR chest 1V portable HISTORY: 68 years-old Female Chest Pain acute atypical chest pain COMPARISON: Chest radiograph 07/02/2018 TECHNIQUE: Portable AP view of the chest FINDINGS: Cardiac silhouette is enlarged, unchanged. No pneumothorax, pleural effusion, focal airspace consolidation or overt pulmonary edema. Degenerative changes of the shoulders and spine. IMPRESSION: Cardiomegaly without acute process. The above report was generated using voice recognition software. It may contain grammatical, syntax or spelling errors. Electronically signed by: Manish Gonzalez M.D. 07/15/2019 4:00 PM ECG Data Attestation: I personally reviewed and interpreted this ECG as follows: Indication: + palpitations Rate (beats per minute): 101 Rhythm: + sinus tachycardia (vs atrialtopic rhythm) ECG ST segments: no ST depression and no ST elevation ECG Findings: + Other (nonspecific ST and T wave abnormalities, FL is 208, QT-c 482) Additional Comments: REPEAT EKG: Normal sinus rhythm vs atrial ectopic rhythm at a rate of 88. Normal axis. QT-c 488. Nonspecific T wave abnormality that is improved. No ST elevation. Blood Pressure Blood Pressure Findings: Elevated blood pressure Blood Pressure Disposition: further management by hospitalist [facility] Narrative The patient is a pleasant 68-year-old woman with pmhx of PE and MTHFR mutation on Coumadin who presents emergency department with intermittent episodes of palpitations where she reports her heart rate will go as high as the 200s per hpi. On arrival patient is in no acute distress, afebrile with heart rate labile from the 110s to the 150s 160s although initially with heart rate as high as 200s and vital signs otherwise stable. The patient denies any prior history of similar symptoms. She does admittedly drink caffeine regularly in the form of Pepsi, saying that "all she ever drinks is Pepsi. On exam the patient appears clinically dry. EKG demonstrates Sinus tachycardia vs atrial tachycardia given slight change in morphology of P waves. There is no overt acute ischemia however T wave abnormalities inferiorly. Chemistry without acidosis. Potassium 3.1, phosphorus 2.3 and magnesium 1.9 with repletion provided. Patient's heart rate did improve slowly downtrending to the 80s to 110s though still labile. Repeat EKG with improved rate though still with possible atrial ectopic rhythm. T wave abnormalities are improved. However while improved though does still feel palpitations and lightheadedness when her heart rate increases. Therefore reasonable to admit for further monitoring/management. Case was discussed with Ryann Barnett, [facility], who evaluate the patient for admission. The scribe's documentation has been prepared under my direction and personally reviewed by me in its entirety. I confirm that the note above accurately reflects all work, treatment, procedures, and medical decision making performed by me.
[2019-07-16] MEDS ORDERED: METOPROLOL TARTRATE 1 MG/ML VIAL IV ONE (02:09)
[2019-07-16 06:36] LABS: Calcium 8.3 mg/dl (8.5-10.1); Creatinine Clr Calc Pharmacy 88.2 ml/min; Est GFR (African American) 105.6; Est GFR (Non-African American) 91.2; Magnesium 2.2 mg/dl (1.8-2.4); Phosphorus 2.7 mg/dl (2.5-4.9); Potassium 4.4 mmol/L (3.5-5.1)
[2019-07-16] MEDS: ACETAMINOPHEN 325 MG TAB PO PRN ×2 (08:38→17:02)
[2019-07-16] MEDS: FOLIC ACID 1 MG TAB PO SCH (08:39)
[2019-07-16] MEDS: NSS + 20MEQ KCL 20 MEQ/1,000 ML BAG IV SCH ×2 (08:39→16:56)
[2019-07-16] MEDS: POT PHOSPHATE MONOBASIC W/ SOD TAB PO SCH ×4 (08:39→20:03)
[2019-07-16] MEDS ORDERED: SPIRONOLACTONE 25 MG TAB PO SCH (09:00)
--- NOTE | 2019-07-16 09:41 | Cardiology Consultation ---
Date of Consultation July 16, 2019 Assessment & Plan (1) Paroxysmal supraventricular tachycardia: Telemetry monitoring overnight did capture SVT in the 200 bpm range. At this point I am not quite sure the inciting factor other than her significant hypokalemia, which is a new finding for her. Especially since she is on Spironolactone. So this time I will check an echocardiogram to evaluate for structural abnormalities. The pathophysiology and treatment options for SVT were discussed with her great length today and she will be started on metoprolol 25 mg twice daily For hopeful successful suppression. I am highly suspicious that she is also suffering from sleep apnea and a nocturn al pulse ox will be obtained today as well. We will continue to monitor on telemetry overnight (2) Hypokalemia: Unclear etiology Currently being repleted Will need to be followed closely as an outpatient History of Present Illness Reason for Consultation: PSVT Attending Physician: Stacie Alcaraz MD History of Present Illness It was my pleasure to see Ms. Post in consultation today July 16, 2019. She is a very pleasant 68-year-old woman not previously seen by her cardiology practice who presented to [facility] on 07/15/2019 with complaints of palpitations. She states that approximately 1 week prior to presentation she started having episodes of feeling her heart racing. She states it could happen either at rest or with exertion. She states her heart would start racing and occasionally she get a little lightheaded with this. She states these episodes never lasted longer than a few minutes and then they quickly resolve on their own. She notes that the palpitations may have been worse when she was lying down but otherwise there is no aggravating or alleviating factors. The episode started becoming more frequent with more more lightheadedness until she was out to dinner on the and her family notes that she became very lightheaded and close to passing out. When she went to walk out of the restaurant she is having difficulty walking and her heart was racing at that time. Upon presentation emergency room her heart was found to be in the 200s and quickly broke to normal sinus rhythm with frequent supraventricular ectopy. On telemetry overnight patient was baseline sinus rhythm with frequent supraventricular ectopy with short runs of SVT in the 200s. She was also found to be hypokalemic on presentation that was repleted and she was given IV Lopressor appropriately overnight with resolution of the SVT. She denies any factors leading up to these events. Specifically denies any fevers, diarrhea change in diet or change in medications. Upon further questioning she does state that she snores at night and feels very tired during the day and requires frequent naps. She is never been screened for sleep apnea. Allergies Allergy/AdvReac Type Severity Reaction Status Date / Time nickel Allergy Intermediate RASH/ITCHIN Verified 06/05/19 11:07 G Cephalosporins Allergy Mild rash Verified 06/05/19 11:07 triamterene Allergy Unknown tachycardia Verified 06/05/19 11:07 Home Medications Home Medications Medication Instructions Recorded Confirmed Type bupropion HCl 300 mg PO QAM 06/09/18 07/15/19 History cyanocobalamin (vitamin B-12) 1,000 mcg PO QAM 06/09/18 07/15/19 History diazepam 2 mg PO QID PRN 06/09/18 07/15/19 History folic acid 1 mg PO QAM 06/09/18 07/15/19 History meclizine 25 mg PO TID PRN 06/09/18 07/15/19 History spironolactone 50 mg PO QAM 06/09/18 07/15/19 History warfarin 5 mg PO QPM 06/09/18 07/15/19 History PNV cmb#95-ferrous fumarate-FA 1 tab PO QPM 04/12/19 07/15/19 History [] albuterol sulfate 2 puff INHALATION QID PRN 04/12/19 07/15/19 History Patient History Medical History Acute blood loss anemia HX of after gallbladder surgery 2017 Acute pulmonary embolism HX 2014 & 2013 -DX'D WITH MTHFR then started on warfarin Anxiety Cancer COLON Depression History of MTHFR mutation Obesity On anticoagulant therapy WARFARIN DAILY Vertigo Surgical History H/O ileostomy AND REVERSED History of anesthesia reaction SLOW TO WAKE UP WITH GB SURG 06/2018 [facility] History of bowel resection History of cholecystectomy 06/2018 [facility]-2 BLOOD TRANSFUSIONS History of colonoscopy History of esophagogastroduodenoscopy (EGD) History of right cataract extraction History of tonsillectomy History of total knee replacement RIGHT TKA= 02/09/18= SAB X 1 ATTEMPT + PNB AT [facility] Nausea and vomiting after administration of anesthetic agent + VERITIGO (EXACERBATED)/DIZZINESS S/P COLON RESECTION S/P IVC filter PLACED 06/2018 AND WAS REMOVED 09/2018 S/P STANISLAW-BSO Family History Mother Cardiomyopathy Father No pertinent family history Grandmother , age 62 Aneurysm Brother Brain tumor Aunt Family history of diabetes mellitus Aunt Family history of diabetes mellitus Aunt Family history of diabetes mellitus Uncle Family history of diabetes mellitus Uncle Family history of diabetes mellitus Social History Preferred Language: Kiswahili Communication Ability: Effective Visual Impairment: No Limitations Acquisitions Analyst Required: No Beliefs That Will Affect Care: None Current Living Situation: Family Other Information That Helps Us Care for You: No Feels Safe at Home: Yes Safety Concerns: Feels Safe At This Time Smoking Status: Never smoker Second Hand Exposure: No ; Hx Alcohol Use: No Hx Substance Use: No Review of Systems Review of Systems: All systems reviewed & are unremarkable except as noted in HPI & below Physical Exam Physical Exam: General: Awake, alert and oriented x 3. No acute distress. HEENT: Normocephalic, atraumatic. Pupils equal, round and reactive to light and accommodation. Extraocular muscles are intact. Anicteric sclera. Moist mucous membranes. Neck: No JVD. No bruit. Cardiovascular: Regular. Positive S-4. Normal S-1 and S-2. No S-3. 3/6 holosystolic ejection murmur, left sternal border, mid-clavicular line with radiation to the axilla. No rubs. Pulmonary: Clear to auscultation bilaterally. No rales, rhonchi, or wheezing. Abdomen: Bowel sounds x 4, soft. No rebound, guarding or tenderness. No organomegaly. Extremities: No clubbing, cyanosis or edema. +2 pedal pulses bilaterally. Skin: Warm and dry. Results & Data Vital Signs (Past 12 Hours) Vital Signs Temp Pulse Pulse Resp BP BP Pulse Ox 07/16/19 08:15 37.1 C 74 18 127/71 97 07/16/19 07:53 75 07/16/19 05:03 110 H 124/75 07/16/19 04:35 36.6 C 76 18 104/49 L 96 07/15/19 23:55 36.5 C 86 18 145/74 H 97 Laboratory Results Laboratory Results - last 24 hr 07/15/19 07/15/19 07/15/19 15:16 15:16 15:16 WBC 5.84 RBC 4.40 Hgb 14.3 Hct 42.2 MCV 95.9 MCH 32.5 MCHC 33.9 RDW Std Deviation 48.2 H RDW Coeff of Yaz 13.7 Plt Count 244 MPV 11.9 H Immature Gran % (Auto) 0.0 Neut % (Auto) 63.2 Lymph % (Auto) 29.3 Valley % (Auto) 5.3 Eos % (Auto) 1.9 Baso % (Auto) 0.3 Immature Gran # (Auto) 0.00 Neut # (Auto) 3.69 Lymph # (Auto) 1.71 Valley # (Auto) 0.31 Eos # (Auto) 0.11 Baso # (Auto) 0.02 PT 28.7 H INR 3.0 H Sodium 139 Potassium 3.1 L Chloride 105 Carbon Dioxide 23 Anion Gap 11.0 BUN 10 Creatinine 0.91 Est Cr Clr Drug Dosing Not Reportable Est GFR ( Amer) 76.2 Est GFR (Non-Af Amer) 65.7 BUN/Creatinine Ratio 11.3 Glucose 150 H Calcium 9.6 Phosphorus 2.3 L Magnesium 1.9 Total Bilirubin 0.4 AST 23 ALT 21 Alkaline Phosphatase 85 Troponin I < 0.015 Total Protein 8.3 H Albumin 4.3 Globulin 4.0 Albumin/Globulin Ratio 1.1 Lipase 123 TSH 1.890 Urine Color Urine Appearance Urine pH Ur Specific [place] Urine Protein Urine Glucose (UA) Urine Ketones Urine Blood Urine Nitrite Urine Bilirubin Urine Urobilinogen Ur Leukocyte Esterase Urine WBC (Auto) Urine RBC (Auto) U Hyaline Cast (Auto) U Epithel Cells (Auto) Urine Bacteria (Auto) Hepatitis C Ab Screen 07/15/19 07/16/19 07/16/19 18:00 05:28 05:28 WBC RBC Hgb Hct MCV MCH MCHC RDW Std Deviation RDW Coeff of Yaz Plt Count MPV Immature Gran % (Auto) Neut % (Auto) Lymph % (Auto) Valley % (Auto) Eos % (Auto) Baso % (Auto) Immature Gran # (Auto) Neut # (Auto) Lymph # (Auto) Valley # (Auto) Eos # (Auto) Baso # (Auto) PT INR Sodium 141 Potassium 4.4 D Chloride 110 H Carbon Dioxide 25 Anion Gap 6.0 BUN 12 Creatinine 0.68 Est Cr Clr Drug Dosing 88.2 Est GFR ( Amer) 105.6 Est GFR (Non-Af Amer) 91.2 BUN/Creatinine Ratio 17.0 Glucose 105 H Calcium 8.3 L Phosphorus 2.7 Magnesium 2.2 Total Bilirubin AST ALT Alkaline Phosphatase Troponin I Total Protein Albumin Globulin Albumin/Globulin Ratio Lipase TSH Urine Color Yellow Urine Appearance Clear Urine pH 6.0 Ur Specific [place] 1.012 Urine Protein Negative Urine Glucose (UA) Negative Urine Ketones Negative Urine Blood Negative Urine Nitrite Negative Urine Bilirubin Negative Urine Urobilinogen Negative Ur Leukocyte Esterase Trace H Urine WBC (Auto) 1-5 Urine RBC (Auto) 0-4 U Hyaline Cast (Auto) 1-5 U Epithel Cells (Auto) 20-30 H Urine Bacteria (Auto) Negative Hepatitis C Ab Screen Neg Medications Administered Current Inpatient Medications Acetaminophen (Tylenol) 650 mg PO Q4H PRN PRN Reason: Pain or Fever Stop: 08/14/19 20:26 Last Admin: 07/16/19 08:38 Dose: 650 mg Documented by: Folic Acid (Folvite) 1 mg PO QAM [facility] Stop: 08/15/19 08:59 Last Admin: 07/16/19 08:39 Dose: 1 mg Documented by: Potassium Chloride/Sodium Chloride (Normal Saline W/20 Meq Kcl) 20 meq in 1,000 mls @ 100 mls/hr IV .Q10H [facility] Stop: 08/14/19 20:59 Last Admin: 07/16/19 08:39 Dose: 100 mls/hr Documented by: Meclizine HCl (Antivert) 25 mg PO TID PRN PRN Reason: Dizziness Stop: 08/14/19 20:26 Metoprolol Tartrate (Lopressor) 25 mg PO BID [facility] Stop: 08/15/19 09:29 Last Admin: 07/16/19 09:46 Dose: 25 mg Documented by: Potassium Phosphate (Phospha 250 Neutral [id number] Mg) 1 tab PO QID [facility] Stop: 08/14/19 20:59 Last Admin: 07/16/19 08:39 Dose: 1 tab Documented by: Warfarin Sodium (Coumadin) 5 mg PO DAILY@1600 [facility] Stop: 08/15/19 15:59
[2019-07-16] MEDS: METOPROLOL TARTRATE 25 MG TAB PO SCH ×2 (09:46→20:03)
--- NOTE | 2019-07-16 15:33 | Hospitalist Progress Note ---
Date of Service July 16, 2019 Assessment & Plan (1) Paroxysmal supraventricular tachycardia: Present on admission with palpitation associated with dizziness with HR in the 200's at home as per patient. Possible related to low K and Phosphorus HR on admission 202, then dropped to 120 spontaneously Received IVF and K replaced ECHO showed no wall motion abnormality and EF btw 55-60% cardiology on board Metoprolol 25mg BID started Overnight pulse oximetry ordered Heart rate stable continue monitor in tele Hypokalemia K on admission 3.1, K 4.4 today K replaced Hypophosphatemia Phosphorus on admission 2.3, phos 2.7 today Stable History of pulmonary embolism, 2018 History of MTHFR mutation Chronic Coumadin, INR 3.0 yesterday Coumadin Check PT/INR tomorrow History of rectal cancer S/P colectomy Stable History of depression will resume bupropion in am Stable DVT prophylaxis On Coumadin INR 3.0 Disposition Possible discharge home tomorrow Subjective Pt was seen and examined. Lying in bed with no distress. Pt said that she feels ok She said that she walks in her room with no distress Denies any chest pain, palpitation, dizziness and SOB Physical Exam Physical Exam: General- No acute distress Head- atraumatic Eyes- PERRL, EOMI, ENT- oropharynx clear Neck- supple, no JVD Lungs- clear to auscultation Heart- regular rhythm Abdomen- normal bowel sounds, soft, nontender Extremities- no calf tenderness Neuro- alert, oriented x 3; PERRL, EOMI; no facial palsy; no dysarthria Skin- warm & dry Results & Data Vital Signs (Past 12 Hours) Vital Signs Temp Pulse Pulse Resp BP BP Pulse Ox 07/16/19 15:11 36.4 C L 67 18 133/75 98 07/16/19 11:27 36.4 C L 65 18 125/75 97 07/16/19 08:15 37.1 C 74 18 127/71 97 07/16/19 07:53 75 07/16/19 05:03 110 H 124/75 07/16/19 04:35 36.6 C 76 18 104/49 L 96
[2019-07-16] MEDS ORDERED: WARFARIN SOD 5 MG TAB PO SCH (16:00)
[2019-07-17] MEDS: NSS + 20MEQ KCL 20 MEQ/1,000 ML BAG IV SCH (02:45)
[2019-07-17 06:49] LABS: INR 1.7 (0.9-1.1); Prothrombin Time 16.9 Seconds (9.0-12.0)
[2019-07-17 07:16] LABS: BUN Creatinine Ratio 16.2 (10-20); Calcium 8.7 mg/dl (8.5-10.1); Creatinine Clr Calc Pharmacy 89.3 ml/min; Est GFR (African American) 106.2; Est GFR (Non-African American) 91.6; Potassium 4.2 mmol/L (3.5-5.1)
[2019-07-17 07:17] LABS: Magnesium 2.3 mg/dl (1.8-2.4); Phosphorus 3.1 mg/dl (2.5-4.9)
--- NOTE | 2019-07-17 08:34 | Hospitalist Progress Note ---
Date of Service July 17, 2019 Assessment & Plan (1) Paroxysmal supraventricular tachycardia: Present on admission with palpitation associated with dizziness with HR in the 200's at home as per patient. Possible related to low K and Phosphorus HR on admission 202, then dropped to 120 spontaneously Received IVF and K replaced ECHO showed no wall motion abnormality and EF btw 55-60% cardiology on board Continue Metoprolol 25mg BID No arrhythmia on tele monitor overnight, but yesterday afternoon, he had a run of SVT around 16:45 yesterday case discussed with Cardiology Dr. Rob recommended to discharge on Metoprolol 25mg BID Follow up with cardiology in 1 month cardiology will arrange for the Zio Patch (heart monitor) oupatient Overnight pulse oximetry done and there was no desaturation event noted Clinically stable Hypokalemia K on admission 3.1, K 4.1 today advised pt to increase potassium supplement on tele monitor Check BMP in 1 week Hypophosphatemia Phosphorus on admission 2.3, phos 2.7 Stable History of pulmonary embolism, 2018 History of MTHFR mutation Chronic Coumadin, INR 1.7 today Continue Coumadin Follow up with the coag clinic History of rectal cancer S/P colectomy Stable History of depression Bupropion resumed Stable DVT prophylaxis On Coumadin INR 1.7 Disposition Will discharge home today Follow up with your primary care provider Dr. Hays on 07/23 @ 10:45AM Follow up with the coumadin clinic Check BMP in 1 week Subjective Pt was seen and examined Lying in bed with no distress Pt said that she feels fine She had a run of possible SVT around 16:45 yesterday Denies any chest pain, palpitation and SOB Physical Exam Physical Exam: General- No acute distress Head- atraumatic Eyes- PERRL, EOMI, ENT- oropharynx clear Neck- supple, no JVD Lungs- clear to auscultation Heart- regular rhythm Abdomen- normal bowel sounds, soft, nontender Extremities- no calf tenderness Neuro- alert, oriented x 3; PERRL, EOMI; no facial palsy; no dysarthria Skin- warm & dry Results & Data Vital Signs (Past 12 Hours) Vital Signs Temp Pulse Pulse Resp BP Pulse Ox Pulse Ox 07/17/19 07:07 36.4 C L 61 19 117/71 96 07/17/19 04:47 36.4 C L 76 19 115/55 L 95 07/17/19 03:26 58 L 96 07/17/19 00:21 63 96 07/16/19 23:37 36.5 C 74 18 109/57 L 96 07/16/19 21:36 65 98
[2019-07-17] MEDS: FOLIC ACID 1 MG TAB PO SCH (08:44)
[2019-07-17] MEDS: METOPROLOL TARTRATE 25 MG TAB PO SCH (08:44)
[2019-07-17] MEDS: POT PHOSPHATE MONOBASIC W/ SOD TAB PO SCH (08:44)
[2019-07-17] MEDS ORDERED: BuPROPion XL 300 MG TABCR PO SCH (09:00)
--- NOTE | 2019-07-17 09:29 | Discharge Summary ---
Date of Service July 17, 2019 Admission HPI Per Admitting Provider 68-year-old female with history of PE, MTHFR mutation, on chronic Coumadin, History of of rectal cancer, status post partial colectomy, other problems noted below presenting with intermittent palpitations and elevated heart rate since last week. Patient reports that since last week she has been having intermittent episodes of palpitations associated with lightheadedness and sensation of feeling that she is going to pass out. During these episodes patient patient would check her pulse rate with a pulse oximeter at home, reveals heart rate in the 200s. Episodes would occur about 1-2 times a day, lasts for about 5 to 10 minutes, and would spontaneously resolve with rest. This afternoon while eating at a restaurant, the patient had recurrence of the palpitations. Family brought the patient to the ER for evaluation. Upon admission, patient's heart rate was noted to be in the 200s, but quickly improved in the 120s, sinus rhythm. There is no EKG or security monitor strips while the heart rate was in the 200s. Patient was given IV NSS, potassium, magnesium. Heart rate further improved in the 80s. On exam patient was seen sitting up in bed, comfortable, not in distress. At that time heart rate was also in the 80s, sinus rhythm. She denies having active shortness of breath, chest pain, palpitations, dizziness, nausea. No other symptoms Admission Exam Per Admitting Provider General- oriented x 3, not in distress, speaks in sentences with no effort or accessory muscle use Head- atraumatic Eyes- PERRL, EOMI, anicteric ENT- oropharynx clear Neck- supple, no JVD, no adenopathy, no thyromegaly; carotids +2/2, no bruits appreciated Lungs- clear to auscultation bilaterally, no rales/wheezes Heart- normal rate, regular rhythm; no murmur, no gallop, no rub appreciated Abdomen- normal bowel sounds, nondistended, soft, nontender, no masses or hepatosplenomegaly Extremities- no pretibial edema, no calf tenderness; peripheral pulses intact Neuro- alert, oriented x 3; CN 2-12 grossly intact; motor 5/5 bilaterally;sensation 100% on all extremities; no other gross focal neurologic deficits Skin- warm & dry Principal Diagnosis Paroxysmal supraventricular tachycardia Hypokalemia Hypophosphatemia History of pulmonary embolism, 2018 History of MTHFR mutation History of rectal cancer Depression Discharge Exam General- No acute distress Head- atraumatic Eyes- PERRL, EOMI, ENT- oropharynx clear Neck- supple, no JVD Lungs- clear to auscultation Heart- regular rhythm Abdomen- normal bowel sounds, soft, nontender Extremities- no calf tenderness Neuro- alert, oriented x 3; PERRL, EOMI; no facial palsy; no dysarthria Skin- warm & dry Discharge Data Allergies Allergy/AdvReac Type Severity Reaction Status Date / Time nickel Allergy Intermediate RASH/ITCHIN Verified 06/05/19 11:07 G Cephalosporins Allergy Mild rash Verified 06/05/19 11:07 triamterene Allergy Unknown tachycardia Verified 06/05/19 11:07 Consultations 07/15/19 17:49 ED Decision to Admit Stat 07/15/19 20:27 Consult Cardiology Routine Ordered Studies XR chest 1V portable HISTORY: 68 years-old Female Chest Pain acute atypical chest pain COMPARISON: Chest radiograph 07/02/2018 TECHNIQUE: Portable AP view of the chest FINDINGS: Cardiac silhouette is enlarged, unchanged. No pneumothorax, pleural effusion, focal airspace consolidation or overt pulmonary edema. Degenerative changes of the shoulders and spine. IMPRESSION: Cardiomegaly without acute process. The above report was generated using voice recognition software. It may contain grammatical, syntax or spelling errors. Electronically signed by: Manish Gonzalez M.D. 07/15/2019 4:00 PM Dictated: 07/15/19 1559 Transcribed: 07/15/19 1559 Hospital Course (1) Paroxysmal supraventricular tachycardia: Present on admission with palpitation associated with dizziness with HR in the 200's at home as per patient. Possible related to low K and Phosphorus HR on admission 202, then dropped to 120 spontaneously Received IVF and K replaced ECHO showed no wall motion abnormality and EF btw 55-60% cardiology on board Continue Metoprolol 25mg BID No arrhythmia on tele monitor overnight, but yesterday afternoon, he had a run of SVT around 16:45 yesterday case discussed with Cardiology Dr. Rob recommended to discharge on Metoprolol 25mg BID Follow up with cardiology in 1 month cardiology will arrange for the Zio Patch (heart monitor) oupatient Overnight pulse oximetry done and there was no desaturation event noted Clinically stable Hypokalemia K on admission 3.1, K 4.1 today advised pt to increase potassium supplement on tele monitor Check BMP in 1 week Hypophosphatemia Phosphorus on admission 2.3, phos 2.7 Stable History of pulmonary embolism, 2017 History of MTHFR mutation Chronic Coumadin, INR 1.7 today Continue Coumadin Follow up with the coag clinic History of rectal cancer S/P colectomy Stable History of depression Bupropion resumed Stable DVT prophylaxis On Coumadin INR 1.7 Disposition Will discharge home today Follow up with your primary care provider Dr. Hays on 07/23 @ 10:45AM Follow up with the coumadin clinic Check BMP in 1 week Total Time Total Time Spent Total Time Spent (In Minutes): 35 minutes Total Time Includes: Examination of the Patient, Discharge Planning, Medication Reconciliation, Communication With Other Providers and Other Discharge Plan Discharge Items Patient Disposition: Home - Self-Care Reason For Visit: PALPITATIONS,LIKELY TACHYARRHYTHMIA Discharge Diagnosis: Paroxysmal supraventricular tachycardia Hypokalemia Hypophosphatemia History of pulmonary embolism, 2017 History of MTHFR mutation History of rectal cancer Activity: Resume your previous activity Activity Comment: as tolerated Non-emergency contact: Primary Care Provider and Proofsheet Corrector Call non-emergency contact if: you have any medication questions Follow-up/Referrals: Elmo Hays MD [Primary Care Provider] - Diet: Heart Healthy Addtl Attending Provider Instructions: Follow up with your primary care provider Dr. Hays on 07/23 @ 10:45AM Follow up with cardiology Dr. Rob in 1 month (cardiology will arrange for the appointment) cardiology will also arrange for heart monitor to wear Check BMP in 1 week to monitor electrolytes Follow up with the Coumadin clinic Pending Studies at Discharge: No Stand-Alone Forms: My Teliportme, Smoking Cessation Medications and DC Order Prescriptions: New metoprolol tartrate 25 mg Tablet 25 mg PO BID 30 Days Qty: 60 RF: 0 Continued meclizine 25 mg tablet 25 mg PO TID PRN (Reason: Dizziness) RF: 0 diazepam 2 mg tablet 2 mg PO QID PRN (Reason: Vertigo) RF: 0 warfarin 5 mg tablet 5 mg PO QPM RF: 0 folic acid 1 mg Tablet 1 mg PO QAM RF: 0 spironolactone 50 mg tablet 50 mg PO QAM RF: 0 bupropion HCl 300 mg tablet extended release 24 hr 300 mg PO QAM RF: 0 cyanocobalamin (vitamin B-12) 1,000 mcg Capsule 1,000 mcg PO QAM RF: 0 PNV cmb#[id number]-ferrous fumarate-FA [] 28 mg iron- 800 mcg Tablet 1 tab PO QPM RF: 0 albuterol sulfate 90 mcg/actuation Hfa Aerosol Inhaler 2 puff INHALATION QID PRN (Reason: Wheezing) RF: 0 Discharge Orders: Discharge Order (Routine); Ordered 07/17/19 Ordered By: Stacie Alcaraz Admission Data Admit Date/Time: 07/15/19 18:55 Attending Provider: Marii Drake Admit Provider: Syd Hayden Primary Care Provider: Elmo Hays Other Providers: Syd Hayden ; Peter Rob
--- NOTE | 2019-07-17 10:08 | Cardiology Progress Note ---
Date of Service July 17, 2019 Assessment & Plan (1) Paroxysmal supraventricular tachycardia: Telemetry monitoring overnight did capture SVT in the 200 bpm range. At this point I am not quite sure the inciting factor other than her significant hypokalemia, which is a new finding for her. Especially since she is on Spironolactone. no significant structural abnormality of echo responding well to metoprolol 25mg po bid, would cont my office will call to arrange 2 week zio as an outpatient along with f/u with me in 1 month ok to d/c to home counseled to return to ER with symptoms (2) Hypokalemia: Unclear etiology Currently being repleted Will need to be followed closely as an outpatient with pcp Subjective Pt seen and examined, states that she did have a slight episode of palpitations last PM that did correlate with a short run of PSVT on monitor. No other episodes. She is confused and frustrated by her hypokalemia. Otherwise, feels well Tele reviewed: sinus rhythm with a single run of psvt last PM Review of Systems Review of Systems: All systems reviewed & are unremarkable except as noted in HPI & below Physical Exam Physical Exam: General: Awake, alert and oriented x 3. No acute distress. HEENT: Normocephalic, atraumatic. Pupils equal, round and reactive to light and accommodation. Extraocular muscles are intact. Anicteric sclera. Moist mucous membranes. Neck: No JVD. No bruit. Cardiovascular: Regular. Positive S-4. Normal S-1 and S-2. No S-3. No murmurs or rubs. Pulmonary: Clear to auscultation B/L. No rales, rhonchi or wheezing Abdomen: Bowel sounds x 4, soft. No rebound, guarding or tenderness. No organomegaly. Extremities: No clubbing, cyanosis or edema. +2 pedal pulses bilaterally. Skin: Warm and dry. Results & Data Vital Signs (Past 12 Hours) Vital Signs Temp Pulse Pulse Resp BP Pulse Ox Pulse Ox 07/17/19 07:07 36.4 C L 61 19 117/71 96 07/17/19 04:47 36.4 C L 76 19 115/55 L 95 07/17/19 03:26 58 L 96 07/17/19 00:21 63 96 07/16/19 23:37 36.5 C 74 18 109/57 L 96
== END 2019-07-17 11:51 | disposition home or self-care (01) ==
LOC: ED 14:44 → 2E 14:44 → SUATTDRO 18:55 → 2E 19:58